=== PATIENT | female | born 2000 | race Asian ===

== ENCOUNTER → 2020-06-27 | Outpatient (CLI) | payer OTHER ==
[~2020-06-27] MED LIST: PROHANCE 279.3MG/ML 15ML VIAL As Ordered ONE
--- NOTE | 2020-06-27 09:13 | REPVR ---
PROCEDURE INFORMATION: Exam: MR Head Without and With Contrast, Sella Exam date and time: 06/27/2020 8:27 AM Age: 19 years old Clinical indication: Hyperprolactinemia. TECHNIQUE: Imaging protocol: MR of the head without and with intravenous contrast. Exam focused on the sella. Contrast material: PROHNCE; Contrast volume: 7 ml; Contrast route: INTRAVENOUS (IV); COMPARISON: No relevant prior studies available. FINDINGS: Brain: There is high signal within the brainstem at the cervicomedullary junction as seen on the axial T2 weighted series. This is likely artifactual. Ventricles: Unremarkable. No Ventriculomegaly. Lymph nodes: There are scattered borderline enlarged cervical lymph nodes. This is not fully characterized on this exam. Sella: There is a 1 x 0.8 x 0.8 cm lesion in the right pituitary gland consistent with a pituitary adenoma in this patient with hyperprolactinemia. Bones/joints: Unremarkable. IMPRESSION: 1. There is a 1 x 0.8 x 0.8 cm lesion in the right pituitary gland consistent with a pituitary adenoma in this patient with hyperprolactinemia. 2. There are scattered borderline enlarged cervical lymph nodes. This is not fully characterized on this exam. Please correlate clinically. 3. There is high signal within the brainstem at the cervicomedullary junction as seen on the axial T2 weighted series. This is likely artifactual. Please correlate clinically. Electronically signed by: Cristiano Min On 06/27/2020 09:13:39 AM
== END ==
LOC: M RAD 07:24
PROVIDERS: ATTEND Obstetrics & Gynecology
DX: E22.1 Hyperprolactinemia (principal); R59.0 Localized enlarged lymph nodes; E23.7 Disorder of pituitary gland, unspecified
CPT/HCPCS: 70553; A9576

== ENCOUNTER → 2020-08-24 | Outpatient (CLI) | payer OTHER | LOC: M PLALAB 09:23 | PROVIDERS: ATTEND Nurse Practitioner Family | DX: E22.1 Hyperprolactinemia (principal) ==